=== PATIENT | male | born 1960 | race Asian ===

== ENCOUNTER 2019-11-29 10:39 | Emergency (ER) | payer OTHER ==
[~2019-11-29] VITALS: Ht 180.3 cm; Wt 61.7 kg
[2019-11-29 11:15] VITALS: Ht 180.3 cm; Wt 61.7 kg
[2019-11-29 11:51] LABS: BASOPHIL % 0.5 % (0-2); PLATELET COUNT 229 x10^3mcL (130-400); RED CELL DISTRIBUTION WIDTH 12.4 % (11.5-14.5)
[2019-11-29 12:33] LABS: CALCIUM 8.4 mg/dL (8.5-10.1); CARBON DIOXIDE 30.3 mmol/L (21-32); CHLORIDE SERUM 103 mmol/L (98-107); CREATININE SERUM 0.9 mg/dL (0.7-1.3); GFR1 > 60 mL/min; GLUCOSE SERUM 104 mg/dL (74-106); SODIUM SERUM 136 mmol/L (136-145)
[2019-11-29 12:48] LABS: ALBUMIN 3.9 g/dL (3.4-5.0); ALKALINE PHOSPHATASE 108 U/L (46-116); ALT/SGPT 38 U/L (16-63); AST/SGOT 26 U/L (15-37); BILIRUBIN TOTAL 0.6 mg/dL (0.20-1.00); CHOLESTEROL 162 mg/dL (<200); HDL CHOLESTEROL 46 mg/dL (40-60); LIPASE 147 IU/L (73-393); T4(THYROXINE) 9.4 ug/dL (4.7-13.3); TOTAL PROTEIN, SERUM 7.4 g/dL (6.4-8.2)
[2019-11-29 14:51] VITALS: BP 156/95
== END 2019-11-29 15:08 | disposition home or self-care (01) ==
LOC: ED 10:39
PROVIDERS: Emergency Medicine
DX: J44.9 Chronic obstructive pulmonary disease, unspecified (principal); E78.00 Pure hypercholesterolemia, unspecified; F17.210 Nicotine dependence, cigarettes, uncomplicated
CPT/HCPCS: 36600; 83880; Q0092

== ENCOUNTER 2019-11-30 16:52 | Emergency (ER) | payer OTHER ==
[~2019-11-30] VITALS: Ht 172.7 cm; Wt 83.5 kg
[2019-11-30 19:12] VITALS: BP 174/92
== END 2019-11-30 19:12 | disposition home or self-care (01) ==
LOC: ED 16:52
DX: J44.9 Chronic obstructive pulmonary disease, unspecified (principal); F41.9 Anxiety disorder, unspecified
CPT/HCPCS: J2930; J7512

== ENCOUNTER 2020-03-10 00:38 | Emergency (ER) | payer OTHER, SELFPAY ==
[~2020-03-10] VITALS: Ht 180.3 cm; Wt 77.1 kg
[2020-03-10 01:19] VITALS: Ht 180.3 cm; Wt 77.1 kg
[2020-03-10 03:30] VITALS: BP 121/75
== END 2020-03-10 03:33 | disposition home or self-care (01) ==
LOC: ED 00:38
DX: H10.33 Unspecified acute conjunctivitis, bilateral (principal); J45.909 Unspecified asthma, uncomplicated; Z20.828 Contact with and (suspected) exposure to other viral communicable diseases
CPT/HCPCS: U0003

== ENCOUNTER 2020-03-30 21:06 | Emergency (ER) | payer OTHER ==
[~2020-03-30] VITALS: Ht 170.2 cm; Wt 79.4 kg
[2020-03-30 21:19] VITALS: BP 135/80; Ht 170.2 cm; Wt 79.4 kg
== END 2020-03-30 23:47 | disposition home or self-care (01) ==
LOC: ED 21:06
DX: Z53.21 Procedure and treatment not carried out due to patient leaving prior to being seen by health care provider (principal)

== ENCOUNTER 2020-03-31 09:54 | Emergency (ER) | payer OTHER ==
[~2020-03-31] VITALS: Ht 172.7 cm; Wt 90.7 kg
[2020-03-31 10:09] VITALS: Ht 172.7 cm; Wt 90.7 kg
[2020-03-31 14:11] LABS: PLATELET COUNT 266 x10^3mcL (152-348); RED CELL DISTRIBUTION WIDTH 12.6 % (12.1-16.2)
[2020-03-31 14:24] LABS: CALCIUM 9.3 mg/dL (8.5-10.1); CARBON DIOXIDE 26.4 mmol/L (21-32); CHLORIDE SERUM 104 mmol/L (98-107); CREATININE SERUM 1.1 mg/dL (0.7-1.3); GFR1 > 60 mL/min; GLUCOSE SERUM 103 mg/dL (74-106); POTASSIUM SERUM 4.2 mmol/L (3.5-5.1); SODIUM SERUM 141 mmol/L (136-145)
[2020-03-31 14:28] LABS: ALBUMIN 3.9 g/dL (3.4-5.0); ALKALINE PHOSPHATASE 101 U/L (46-116); ALT/SGPT 32 U/L (16-63); AST/SGOT 16 U/L (15-37); BILIRUBIN TOTAL 0.49 mg/dL (0.20-1.00); LIPASE 165 IU/L (73-393); TOTAL PROTEIN, SERUM 7.2 g/dL (6.4-8.2)
[2020-03-31 16:07] VITALS: BP 144/92
[2020-03-31 18:03] LABS: BAND NEUTROPHIL 4 % (0-10); MONOCYTE 7 % (0-7); SEGMENTED NEUTROPHILS 79 % (37-75)
[2020-03-31 18:04] LABS: PLATELET MORPHOLOGY PLATELETS NORMAL; rbc morphology (normal/abnorm) NORMAL (NORMAL)
== END 2020-03-31 16:00 | disposition home or self-care (01) ==
LOC: ED 09:54
PROVIDERS: Emergency Medicine
DX: R07.89 Other chest pain (principal); R10.13 Epigastric pain; K21.9 Gastro-esophageal reflux disease without esophagitis; J45.909 Unspecified asthma, uncomplicated; E78.5 Hyperlipidemia, unspecified; Z87.891 Personal history of nicotine dependence
CPT/HCPCS: 36415

== ENCOUNTER 2020-04-01 08:18 | Emergency (ER) | payer OTHER ==
[~2020-04-01] VITALS: Ht 180.3 cm; Wt 79.4 kg
[2020-04-01 08:54] VITALS: Ht 180.3 cm; Wt 79.4 kg
[2020-04-01 11:18] VITALS: BP 140/65
== END 2020-04-01 11:18 | disposition home or self-care (01) ==
LOC: ED 08:18
DX: R07.89 Other chest pain (principal); J45.909 Unspecified asthma, uncomplicated

== ENCOUNTER 2020-06-10 11:07 | Emergency (ER) | payer OTHER, SELFPAY ==
[~2020-06-10] VITALS: Ht 180.3 cm; Wt 80.3 kg
[2020-06-10 11:12] VITALS: Ht 180.3 cm; Wt 80.3 kg
[2020-06-10 12:19] LABS: microscopic required? YES; urine erythrocyte TRACE (NEGATIVE)
[2020-06-10 12:21] LABS: BASOPHIL % 0.5 % (0.2-1.5); PLATELET COUNT 262 x10^3mcL (152-348); RED CELL DISTRIBUTION WIDTH 12.8 % (12.1-16.2)
[2020-06-10 12:36] LABS: CALCIUM 8.8 mg/dL (8.5-10.1); CARBON DIOXIDE 25.4 mmol/L (21-32); CHLORIDE SERUM 100 mmol/L (98-107); GFR1 > 60 mL/min; GLUCOSE SERUM 89 mg/dL (74-106); SODIUM SERUM 134 mmol/L (136-145)
[2020-06-10 12:41] LABS: ALBUMIN 3.7 g/dL (3.4-5.0); ALKALINE PHOSPHATASE 122 U/L (46-116); ALT/SGPT 34 U/L (16-63); AST/SGOT 17 U/L (15-37); BILIRUBIN TOTAL 0.56 mg/dL (0.20-1.00)
[2020-06-10] MEDS ORDERED: VENTOLIN H0.09 MG/A1 IH (13:47)
[2020-06-10] MEDS ORDERED: TES100 PO (13:48)
[2020-06-10 14:01] VITALS: BP 106/59
== END 2020-06-10 14:00 | disposition home or self-care (01) ==
LOC: ED 11:07
PROVIDERS: Emergency Medicine
DX: B34.9 Viral infection, unspecified (principal); E78.5 Hyperlipidemia, unspecified; J45.909 Unspecified asthma, uncomplicated; Z20.822 Contact with and (suspected) exposure to COVID-19
CPT/HCPCS: U0003